=== PATIENT | male | born 1965 | race Caucasian/White ===

== ENCOUNTER 2017-02-21 13:03 | Emergency (ER) | payer BC, OTHER ==
[~2017-02-21 13:03] MED LIST: ACET325T96 PO; IBUP-103 PO
[2017-02-21 13:08] VITALS: TEMP 36.7
[2017-02-21] MEDS ORDERED: SODIUM CHLORIDE 0.9% 1000ML 1,000 ML IV STA (13:12)
[2017-02-21] MEDS ORDERED: WARF5TAB7 PO (14:01)
[2017-02-21] MEDS ORDERED: CMD75 PO (14:01)
--- NOTE | 2017-02-21 14:54 | EMERGENCY ROOM VISIT NOTE ---
History Report prepared by Thaddeus: Milka Grimes Under the Supervision of: Dr. Rajiv Francisco D.O. First contact with patient: 13:12 Chief Complaint: RECTAL BLEEDING Stated Complaint: RECTAL BLEEDING History of Present Illness The patient is a 52 year old male who presents to the Emergency Room with complaints of constant rectal bleeding beginning yesterday. The patient states that 1 week ago hard bowel movement and he had a hemorrhoid that was about an inch big. The patient reports that he did not do anything to treat it but used preparation H yesterday and only had a minimal amount of bleeding that he was not too concerned about. This morning he reports that he bled through his underwear, shorts, and bed sheets and decided to see his doctor that diagnosed him with a hemorrhoid and told him to come into the ED. He notes that he is on Coumadin and his last level was 2.2 and was checked 1 week ago. The patient complains of rectal pain and notes that wiping worsens the bleeding. Source of History: patient Onset: yesterday Position: other (rectum) Quality: other (bleeding) Timing: constant Modifying Factors (Worsening): other (wiping) Note: Pt complains of rectal pain. Review of Systems See HPI for pertinent positives & negatives. A total of 10 systems reviewed and were otherwise negative. Past Medical & Surgical Medical Problems: (1) Stomach problems Family History Patient reports no known family medical history. Social History Smoking Status: Never Smoker Alcohol Use: none Housing Status: lives with family Occupation Status: employed Current/Historical Medications Scheduled Warfarin Sod (Jantoven), 5 MG PO 5XWK Warfarin Sod (Coumadin), 7.5 MG PO 2XWK Allergies Coded Allergies: No Known Allergies (Unverified , NONE, 07/23/16) Physical Exam Vital Signs Date Time Temp Pulse Resp B/P Pulse Ox O2 Delivery O2 Flow Rate FiO2 02/21/17 14:23 73 16 145/80 96 Room Air 02/21/17 13:08 36.7 82 20 144/97 95 Room Air Physical Exam CONSTITUTIONAL/VITAL SIGNS: Reviewed / noted above. GENERAL: Non-toxic in appearance. INTEGUMENTARY: Warm, dry, and Onward. HEAD: Normocephalic. EYES: without scleral icterus or trauma. ENT/OROPHARYNX: clear and moist. LYMPHADENOPATHY/NECK: Is supple without lymphadenopathy or meningismus. RESPIRATORY: Lungs clear and equal. CARDIOVASCULAR: Regular rate and rhythm. GI/ABDOMEN: Soft and nontender. No organomegaly or pulsatile mass. No rebound or guarding. Normal bowel sounds. EXTREMITIES: Warm and well perfused. BACK: No CVA tenderness. NEUROLOGICAL: Intact without focal deficits. PSYCHIATRIC: normal affect. MUSCULOSKELETAL: Normally developed with good muscle tone. RECTAL: Reveals an external hemorrhoids at the 7-9 o'clock position that appears to have ruptured and is oozing a small amount of blood. Medical Decision & Procedures Laboratory Results Test 02/21/17 13:12 Creatine Kinase MB Ratio (0-3.0) Laboratory results as stated above per my review. Procedure Suture Sutured with 4.0 absorbable suture in the patient's hemorrhoid to assist with bleeding control. ED Course 1312: Previous medical records were reviewed. The patient was evaluated in room B9. A complete history and physical examination was performed. 1429: I reevaluated the patient. He is doing well and he is no longer bleeding. Medical Decision the differential was considered includes hemorrhoidal bleeding, anticoagulation use, anemia. This is a 52-year-old male who presents to the ED with a chief complaint of bleeding hemorrhoid. The patient states that he believes he had strained bowel movement 1 week ago. Since that time he has had some oozing from his hemorrhoid. He has been using preparation H as well as some other over-the- counter remedies without improvement. He is on Coumadin. His last INR was 2.21 week ago. The patient was evaluated by his PCP and sent here for further evaluation. On his exam, he has some slight oozing from the hemorrhoid in the 7 - 9 o'clock position. This hemorrhoid appears to have ruptured at some point. Because of the oozing, a 4.0 absorbable Vicryl suture was placed in a continuous fashion with several passes through the hemorrhoid with good bleeding control. The patient was observed here for a wound there was no additional bleeding. He was felt to be stable for discharge. Impression Primary Impression: Bleeding external hemorrhoids Scribe Attestation The scribe's documentation has been prepared under my direction and personally reviewed by me in its entirety. I confirm that the note above accurately reflects all work, treatment, procedures, and medical decision making performed by me. Departure Information Dispostion Home / Self-Care Referrals Feliciano Sanchez M.D. (PCP) Patient Instructions My [facility] [employer] Additional Instructions Use sitz baths after bowel movements. No lifting more than 15 pounds for the next 7 days. Follow-up with your doctor for recheck or if symptoms persist. Return for significant worsening or new symptoms.
[2017-02-21 14:59] VITALS: BP 154/99; PULSE 67; O2SAT 97
== END 2017-02-21 14:59 | disposition home or self-care (01) ==
LOC: C.EDB 13:05
DX: K64.4 Residual hemorrhoidal skin tags (principal); Z87.19 Personal history of other diseases of the digestive system; Z79.01 Long term (current) use of anticoagulants

== ENCOUNTER 2017-02-22 13:38 | Emergency (ER) | payer BC ==
[~2017-02-22] VITALS: Ht 182.9 cm; Wt 114.0 kg
[~2017-02-22 13:38] MED LIST changes: -ACET325T96 PO; +CMD75 PO; -IBUP-103 PO; +WARF5TAB7 PO
[2017-02-22 13:40] VITALS: Ht 182.9 cm; Wt 114.0 kg
[2017-02-22 14:34] LABS: BASO % 0.6 %; BASO ABS # 0.05 K/uL (0-0.2); COMPLETE YES; EOS % 3.2 %; IG% 0.3 %; LYMPH % 30.5 %; LYMPH ABS # 2.39 K/uL (1.2-3.4); MEAN CELL VOLUME 87.9 fL (80-100); MEAN CORPUSCULAR HEMOGLOBIN 29.7 pg (25-34); MEAN CORPUSCULAR HGB CONC 33.8 g/dl (32-36); MONO % 7.4 %; PLATELET COUNT 175 K/uL (130-400); RED BLOOD COUNT 5.12 M/uL (4.7-6.1); WHITE BLOOD COUNT 7.83 K/uL (4.8-10.8)
[2017-02-22 14:53] LABS: CALCIUM 8.8 mg/dl (8.5-10.1)
[2017-02-22 14:55] LABS: BUN/CREATININE RATIO 11.5 (10-20); POTASSIUM 3.7 mmol/L (3.5-5.1)
[2017-02-22 16:08] LABS: INR 1.7 (0.9-1.1); PARTIAL THROMBOPLASTIN RATIO 1.4; PROTHROMBIN TIME (PATIENT) 18.9 SECONDS (9.0-12.0)
[2017-02-22 17:16] VITALS: BP 121/77; PULSE 65; TEMP 36.4; O2SAT 98
--- NOTE | 2017-02-22 19:36 | EMERGENCY ROOM VISIT NOTE ---
History Report prepared by Thaddeus: Bryant Green Under the Supervision of: Dr. Kwesi Weber M.D. First contact with patient: 14:05 Chief Complaint: RECTAL BLEEDING Stated Complaint: BLEEDING IN RECTUM Nursing Triage Summary: Pt reports he was here yesterday for rectal bleeding, had an external hemmorhoid stitched. Pt reports had a sitz bath at home, went to bed. 4x4 gauze was saturated with blood this am from stitch site. Pt having soft/loose BMs. Bleeding bright red blood on gauze. pt denies pain, denies blood in stool. pt is on Coumadin History of Present Illness The patient is a 52 year old male who presents to the Emergency Room with complaints of persistent rectal bleeding that the began yesterday. The patient presented to the emergency department yesterday for a rectal bleed and was given a stitch. His visit yesterday showed a bleeding hemorrhoid on the rectum, and a stitch was placed. The patient states that his gauze pad was saturated last night at 1900, and another pad became 40% saturated from 1900 last night to 0700 this morning. The patient is currently on Coumadin for multiple DVT. His INR was 2.2 one week ago. He skipped last nights dosage at the suggestion of his PCP. He currently denies LOC, headache, fevers, chills, diaphoresis, visual changes, neck pain, chest pain, breathing difficulties, nausea, vomiting , abdominal pain, back pain, melena, urinary symptoms, numbness, weakness, lymphadenopathy, rash, or other complaints. Source of History: patient Onset: Yesterday Position: other (Rectum) Quality: other (Bleeding) Timing: other (Persistent) Associated Symptoms: No LOC, No headache Review of Systems See HPI for pertinent positives and negatives. A total of ten systems were reviewed and were otherwise negative. Past Medical & Surgical Medical Problems: (1) Stomach problems Family History Patient reports no known family medical history. Social History Smoking Status: Never Smoker Alcohol Use: none Housing Status: lives with family Occupation Status: employed Current/Historical Medications Scheduled Warfarin Sod (Jantoven), 5 MG PO 5XWK Warfarin Sod (Coumadin), 7.5 MG PO 2XWK Allergies Coded Allergies: No Known Allergies (Unverified , NONE, 07/23/16) Physical Exam Vital Signs Date Time Temp Pulse Resp B/P Pulse Ox O2 Delivery O2 Flow Rate FiO2 02/22/17 17:16 36.4 65 18 121/77 98 02/22/17 17:16 65 18 121/77 98 Room Air 02/22/17 16:24 63 18 116/73 98 Room Air 02/22/17 15:54 66 18 121/73 98 Room Air 02/22/17 14:46 65 18 116/76 98 Room Air 02/22/17 13:40 36.4 68 18 149/103 98 Room Air Physical Exam GENERAL: Awake, alert, well-appearing, in no distress HENT: Normocephalic, atraumatic. Oropharynx unremarkable. EYES: Normal conjunctiva. Sclera non-icteric. NECK: Supple. No nuchal rigidity. FROM. No JVD. RESPIRATORY: Clear to auscultation. CARDIAC: Regular rate, normal rhythm. Extremities warm and well perfused. Pulses equal. ABDOMEN: Soft, non-distended. No tenderness to palpation. No rebound or guarding. No masses. RECTAL: Deferred. MUSCULOSKELETAL: Chest examination reveals no tenderness. The back is symmetrical on inspection without obvious abnormality. There is no CVA tenderness to palpation. No joint edema. LOWER EXTREMITIES: Calves are equal size bilaterally and non-tender. No edema. No discoloration. NEURO: Normal sensorium. No sensory or motor deficits noted. SKIN: No rash or jaundice noted. RECTAL EXAM: There is a hemorrhoid on the right side at the 3 o'clock position. There is a stitch placed with a blood clot on the surface. There is no major active bleeding. A gauze pad was removed with 40% blood saturation. Medical Decision & Procedures Laboratory Results 02/22/17 14:21 Red Blood Count 5.12, Mean Corpuscular Volume 87.9, Mean Corpuscular Hemoglobin 29.7, Mean Corpuscular Hemoglobin Concent 33.8, Mean Platelet Volume 12.0, Neutrophils (%) (Auto) 58.0, Lymphocytes (%) (Auto) 30.5, Monocytes (%) (Auto) 7.4, Eosinophils (%) (Auto) 3.2, Basophils (%) (Auto) 0.6, Neutrophils # (Auto) 4.54, Lymphocytes # (Auto) 2.39, Monocytes # (Auto) 0.58, Eosinophils # (Auto) 0.25, Basophils # (Auto) 0.05 02/22/17 14:21 Test 02/22/17 14:21 White Blood Count 7.83 K/uL (4.8-10.8) Red Blood Count 5.12 M/uL (4.7-6.1) Hemoglobin 15.2 g/dL (14.0-18.0) Hematocrit 45.0 % (42-52) Mean Corpuscular Volume 87.9 fL (80-100) Mean Corpuscular Hemoglobin 29.7 pg (25-34) Mean Corpuscular Hemoglobin Concent 33.8 g/dl (32-36) Platelet Count 175 K/uL (130-400) Mean Platelet Volume 12.0 fL (7.4-10.4) Neutrophils (%) (Auto) 58.0 % Lymphocytes (%) (Auto) 30.5 % Monocytes (%) (Auto) 7.4 % Eosinophils (%) (Auto) 3.2 % Basophils (%) (Auto) 0.6 % Neutrophils # (Auto) 4.54 K/uL (1.4-6.5) Lymphocytes # (Auto) 2.39 K/uL (1.2-3.4) Monocytes # (Auto) 0.58 K/uL (0.11-0.59) Eosinophils # (Auto) 0.25 K/uL (0-0.5) Basophils # (Auto) 0.05 K/uL (0-0.2) RDW Standard Deviation 42.2 fL (36.4-46.3) RDW Coefficient of Variation 13.0 % (11.5-14.5) Immature Granulocyte % (Auto) 0.3 % Immature Granulocyte # (Auto) 0.02 K/uL (0.00-0.02) Prothrombin Time 18.9 SECONDS (9.0-12.0) Prothromb Time International Ratio 1.7 (0.9-1.1) Activated Partial Thromboplast Time 35.5 SECONDS (21.0-31.0) Partial Thromboplastin Ratio 1.4 Anion Gap 9.0 mmol/L (3-11) Est Creatinine Clear Calc Drug Dose 110.1 ml/min Estimated GFR () 98.5 Estimated GFR (Non- 84.9 BUN/Creatinine Ratio 11.5 (10-20) Calcium Level 8.8 mg/dl (8.5-10.1) Total Bilirubin 0.5 mg/dl (0.2-1) Direct Bilirubin 0.1 mg/dl (0-0.2) Aspartate Amino Transf (AST/SGOT) 23 U/L (15-37) Alanine Aminotransferase (ALT/SGPT) 28 U/L (12-78) Alkaline Phosphatase 83 U/L (45-117) Total Protein 7.3 gm/dl (6.4-8.2) Albumin 4.0 gm/dl (3.4-5.0) Laboratory results reviewed by me ED Course 1422: The patient was evaluated in room B12. A complete history and physical exam was performed. 1551: I reassessed the patient at this time. He is doing well. We are waiting on coagulation studies. There was a quarter-sized spot of blood on the gauze that I just removed. No active bleeding noted. 1556: I reevaluated the patient. Discussed results and discharge instructions: he verbalized understanding and agreement. The patient is ready for discharge. Medical Decision the patient was evaluated. He was seen last night for a bleeding hemorrhoid. He had some bruising persist. He actually notes decreasing bleeding since this morning. The patient did hold his Coumadin last night. IV was established. Blood work was obtained. His CBC revealed no evidence of anemia. The patient had no leukocytosis. The patient's INR was slightly subtherapeutic at 1.7, down from the 2.2 that he reported. He had Surgicel applied to the area and a gauze pad. He was observed while his blood work was pending. The patient had a scant amount of oozing noted on the bandage." He was doing relatively well. She is doing so well I discussed conservative management. He does not need any additional itching. He will hold his Coumadin tonight and then restart it. He will continue to use sitz baths or showers. If he worsens in any way she will come back to the emergency department for reevaluation. He will have a PCP follow-up. Return instructions were outlined the patient was discharge. Impression Primary Impression: Rectal bleed Scribe Attestation The scribe's documentation has been prepared under my direction and personally reviewed by me in its entirety. I confirm that the note above accurately reflects all work, treatment, procedures, and medical decision making performed by me. Departure Information Dispostion Home / Self-Care Referrals Feliciano Sanchez M.D. (PCP) Forms HOME CARE DOCUMENTATION FORM, IMPORTANT VISIT INFORMATION, WORK / SCHOOL INSTRUCTIONS Patient Instructions My [facility] Additional Instructions Continue current medications except the Coumadin. Hold that for tonight and then restart tomorrow. Continue sitz bath or shower after every bowel movement to keep the rectal area clean. Use the gauze as instructed. Return to the ER for worsening rectal bleeding, abdominal pain, vomiting, fevers , or as needed. Follow-up with your primary doctor on Sunday.
== END 2017-02-22 17:17 | disposition home or self-care (01) ==
LOC: C.EDB 13:40
DX: K62.5 Hemorrhage of anus and rectum (principal); Z79.01 Long term (current) use of anticoagulants; Z51.81 Encounter for therapeutic drug level monitoring